=== PATIENT | female | born 1935 | race Caucasian/White ===

== ENCOUNTER 2017-10-22 11:59 | Inpatient (IN) | payer OTHER ==
[~2017-10-22] VITALS: Ht 154.9 cm; Wt 68.9 kg
[2017-10-22] VITALS (7 sets, daily range): BP systolic 103–149; BP diastolic 41–98
[~2017-10-22 11:59] MED LIST: ACETAMINOPHEN325 M1 PO; ADVAIR 250-501 EACH INH; ADVAIR HFA 45-218 GM INH; ALBUTEROL SULFAT2 MG PO; ALBUTEROL SULFAT4 MG PO; ALBUTEROL2.5 MG/31 IH; ALEVE220 MG PO; AZITHROMYCIN 2250 MG PO; BENADRYL25 MG PO; BROVANA15 MCG/2 M INH; CELEXA 20 MG TA20 M1 PO; CELEXA 20 MG TA20 MG PO; CELEXA40 MG PO; DALIRESP500 MCG PO; DIAZEPAM 5 MG5 MG PO; DIFLUCAN100 MG PO; DUONEB 2.5-0.5 M3 ML INH; ESTRACE2 MG PO; FORADIL 1212 MCG/KI1 INH; LEVAQUIN 500 M500 M2 PO; LEVOFLOXACIN750 MG PO; MACROBID 100 M100 M1 PO; MECLIZINE 25 MG25 M1 PO; POTASSIUM20; PREDNISONE; PREDNISONE 10 M10 M1; PREDNISONE 10 M10 M1 PO; PREDNISONE 10 M10 MG PO; PREDNISONE 5 MG5 M1 PO; PULMICORT0.5 MG/21 INH; SINGULAIR 10 MG10 M1 PO; STERAPRED5 MG OR; SYMBICORT160 MCG/4. INH; THEOPHYLLINE S300 M1 PO; THEOPHYLLINE S300 MG PO; VALIUM5 MG PO; ZOFRAN ODT4 MG PO; [UNRECOGNIZED DRUG - OTHER]; [UNRECOGNIZED DRUG - REMARK]
[2017-10-22 12:29] LABS: HEMATOCRIT 40.7 % (37.0-47.0); HEMOGLOBIN 13.1 gm/dL (12.0-15.0); MCHC 32.1 g/dL (28.0-37.0); MCV 93.7 fL (80.0-100.0); MPV 8.2 fl. (7.2-11.1); NUCLEATED RBCS 0 /100WBC; PLATELET COUNT* 299 thou/uL (150-400); RBC 4.35 mil/uL (4.20-5.00); RDW-CV 15.5 % (10.5-14.5); WBC 23.9 thou/uL (4.0-11.0)
[2017-10-22 12:41] LABS: ANION GAP 10 mmol/L (7-16); BUN 22 mg/dL (7-18); CALCIUM 9.2 mg/dL (8.5-10.1); CHLORIDE 104 mmol/L (98-107); CO2 27 mmol/L (21-32); GLUCOSE 116 mg/dL (70-99); POTASSIUM 3.5 mmol/L (3.5-5.1); SODIUM 141 mmol/L (136-145)
[2017-10-22 12:45] LABS: ALBUMIN 3.6 g/dL (3.4-5.0); ALKALINE PHOSPHATASE 92 U/L (46-116); LIPASE 54 U/L (73-393); MAGNESIUM 1.9 mg/dL (1.8-2.4); NT-PRO BRAIN NAT PEPTIDE 8495 pg/mL (<300); SGOT 26 U/L (15-37); SGPT 25 U/L (30-65); TOTAL BILIRUBIN 0.9 mg/dL (<0.1-1.0); TROPONIN-I LEVEL <0.06 ng/mL (<0.06)
[2017-10-22 12:50] LABS: ABSOLUTE MONOCYTES 2.2 thou/uL (0.0-1.2); ABSOLUTE NEUTROPHILS 20.8 thou/uL (1.6-8.1); ANISOCYTOSIS 1+; PLATELET ESTIMATE ADEQUATE; POIKILOCYTOSIS 1+
--- NOTE | 2017-10-22 14:04 | NUR ---
CRISTINA NOTIFIED UPON PT RETURN FROM CT. PT CONNECTED TO MONITOR AND O2
[2017-10-22 18:21] LABS: BE -0.2 mmol/L (-2 to +3); HCO3 25.2 mmol/L (22.0-26.0); PCO2 44.1 mmHg (35.0-45.0); PO2 91.9 mmHg (75.0-100.0); pH 7.375 (7.340-7.450)
--- NOTE | 2017-10-22 18:24 | NUR ---
PATIENT PROGRESSING TOWARDS GOALS. PATIENT ARRIVED TO UNIT AT 1625 BY ER CART WITH LINE TESTER AND RT. PATIENT AWAKE, BUT LETHARGIC UPON ARRIVAL. ORIENTED X4. ADMISSION HISTORY AND ASSESSMENT COMPLETED. PATIENT DOES STATE SHE DOES NOT WANT TO BE INTUBATED IF SHE STARTS TO REQUIRE IT. DR SANDHU ENTERED DO NOT INTUBATE ORDERS. PATIENT ARRIVED ON BIPAP AT 14/6, 14, 40%. AT 1815 ABGS DRAWN WITH NO ABNORMAL VALUES. CALLED RESULTS TO DR DAVENPORT, STATED NO CHANGES TO BIPAP SETTINGS, BUT IF PATIENT WANTS BIPAP OFF TO PLACE HER ON VENTI MASK AT 40% FIO2. PATIENT UPON ARRIVING TACHYPNEIC AND TACHYCARDIC WITH LOTS OF ECTOPY NOTED. PATIENT RESPIRATIONS NOW IN LOW 20S, TRACING SR WITH PVCS. BLOOD PRESSURE STABLE. AFEBRILE. FAMILY PRESENT, INCLUDING DAUGHTER. UPDATED ON CURRENT PLAN OF CARE AND DENIES FURTHER QUESTIONS AT THIS TIME.
[2017-10-23] VITALS (13 sets, daily range): BP systolic 108–172; BP diastolic 48–93
--- NOTE | 2017-10-23 01:01 | NUR ---
PT. REFUSING BIPAP AT THIS TIME, DR. MORROW NOTIFIED DAY SHIFT RN THAT IF PT. IS NOT TOLERATING BIPAP TO USE VENTIMASK 40%. VENTIMASK APPLIED AT THIS TIME.
[2017-10-23 04:30] LABS: ABSOLUTE BASOPHILS 0.1 thou/uL (0.0-0.2); ABSOLUTE MONOCYTES 0.4 thou/uL (0.0-1.2); BASOPHILS 0.3 %; HEMATOCRIT 36.9 % (37.0-47.0); HEMOGLOBIN 11.7 gm/dL (12.0-15.0); LYMPHOCYTES 4.5 %; MCH 29.8 pg (26.0-34.0); MCHC 31.8 g/dL (28.0-37.0); MCV 93.6 fL (80.0-100.0); MONOCYTES 1.9 %; MPV 8.7 fl. (7.2-11.1); NUCLEATED RBCS 0 /100WBC; PLATELET COUNT* 283 thou/uL (150-400); POLYS 93.3 %; RBC 3.94 mil/uL (4.20-5.00); RDW-CV 15.8 % (10.5-14.5); WBC 21.4 thou/uL (4.0-11.0)
[2017-10-23 04:50] LABS: ANION GAP 7 mmol/L (7-16); BUN 21 mg/dL (7-18); CALCIUM 8.5 mg/dL (8.5-10.1); CHLORIDE 106 mmol/L (98-107); CO2 27 mmol/L (21-32); CREATININE 0.9 mg/dL (0.6-1.3); GLUCOSE 166 mg/dL (70-99); NT-PRO BRAIN NAT PEPTIDE 9120 pg/mL (<300); SODIUM 140 mmol/L (136-145); TROPONIN-I LEVEL <0.06 ng/mL (<0.06)
--- NOTE | 2017-10-23 05:03 | NUR ---
PT. PROGRESSING TOWARDS GOALS. BIPAP OFF AT 0100, 40% VENTIMASK ON AT THIS TIME. DENIES PAIN. SINUS RHYTHM WITH FREQUENT PVC'S AND PAC'S. WILL CONTINUE TO MONITOR.
--- NOTE | 2017-10-23 13:28 | 2DMMODE ---
[place] [address] 2 D/M-MODE ECHOCARDIOGRAM Name: BRUNO GASCA Room: [address] IN [facility]#: [id number] Admission: 10/22/17 Attend Phys: Nj Benjamin, Discharge: Date of : 35 Date of Service: 10/23/17 1328 Report #: [id number] THIS REPORT FOR: //name// APPROVED REPORT Study performed: 10/23/2017 11:31:32 EXAM: Comprehensive 2D, Doppler, and color-flow Echocardiogram Patient Location: In-Patient Room #: [facility] Status: routine BSA: 1.74 HR: 102 bpm BP: 124/643 mmHg Rhythm: NSR Other Information Study Quality: Good Indications COPD Dyspnea 2D Dimensions LVEF(%): 63.38 (>50%) IVSd: 11.78 (7-11mm) LVOT Diam: 19.63 (18-24mm) LVDd: 56.79 mm PWd: 11.66 (7-11mm) Ascending Ao: 34.99 (22-36mm) LVDs: 37.00 (25-40mm) Aortic Root: 28.23 mm Mendez's LVEF: 63.38 % Volumes Left Atrial Volume (Systole) LA ESV Index: 29.00 mL/m2 Aortic Valve AoV Peak Justin.: 1.55 m/s AO Peak Gr.: 9.64 mmHg LVOT Max P.93 mmHg AO Mean Gr.: 5.92 mmHg LVOT Mean P.00 mmHg LVOT Max V: 1.22 m/s AO V2 VTI: 30.44 cm LVOT Mean V: 0.80 m/s BRITTANY (VTI): 2.44 cm2 LVOT V1 VTI: 24.50 [place] [address] 2 D/M-MODE ECHOCARDIOGRAM Name: BRUNO GASCA Room: [address] IN [facility]#: [id number] Admission: 10/22/17 Attend Phys: Nj Benjamin, Discharge: Date of : 35 Date of Service: 10/23/17 1328 Report #: [id number] E/A Ratio: 0.70 MV Decel. Time: 273.50 ms MV E Max Justin.: 0.73 m/s MV PHT: 79.31 ms MVA (PHT): 2.77 cm2 TDI E/Lateral E': 6.64 E/Medial E': 7.30 Medial E' Justin.: 0.10 m/s Lateral E' Justin.: 0.11 m/s Pulmonary Valve PV Peak Justin.: 0.99 m/s PV Peak Gr.: 3.92 mmHg Left Ventricle The left ventricle is normal size. There is normal LV segmental wall motion. There is normal left ventricular wall thickness. The left ventricular systolic function is normal. LVEF is 55-60%. Grade I - abnormal relaxation pattern. Right Ventricle The right ventricle is normal size. The right ventricular systolic function is normal. Atria Left atrium is mildly dilated. The right atrium size is normal. Aortic Valve The aortic valve is normal in structure. No aortic regurgitation is present. There is no aortic valvular stenosis. Mitral Valve The mitral valve is normal in structure. Moderate mitral regurgitation. No evidence of mitral valve stenosis. Tricuspid Valve The tricuspid valve is normal in structure. Unable to assess PA pressure. Trace tricuspid regurgitation. Pulmonic Valve The pulmonary valve is normal in structure. There is no pulmonic valvular regurgitation. Great Vessels The aortic root is normal in size. IVC is [place] [address] 2 D/M-MODE ECHOCARDIOGRAM Name: BRUNO GASCA Room: [address] IN [facility]#: [id number] Admission: 10/22/17 Attend Phys: Nj Benjamin, Discharge: Date of : 35 Date of Service: 10/23/17 1328 Report #: [id number] collapses with >50% inspiration Pericardium There is no pericardial effusion. <Conclusion> The left ventricle is normal size. There is normal left ventricular wall thickness. The left ventricular systolic function is normal. LVEF is 55-60%. Grade I - abnormal relaxation pattern. Left atrium is mildly dilated. Moderate mitral regurgitation. There were frequent premature ventricular contractions during the study. <ELECTRONICALLY SIGNED> By: Gasper Lala MD, FACC 10/23/17 1328 1328 1328 Gasper Lala MD, FACC /INF
--- NOTE | 2017-10-23 13:44 | EKG ---
[place] [address] ELECTROCARDIOGRAM REPORT Name: BRUNO GASCA Room: [address] IN [facility]#: [id number] Admission: 10/22/17 Attend Phys: Nj Benjamin MD Discharge: Date of : 35 Report #: [id number] THIS REPORT FOR: //name// [facility] ED Test Date: 2017-10-22 Test Time: 12:10:18 Pat Name: BRUNO GASCA Department: Room: Gender: Replenishment Associate: Deepali MCCANN : 1935 Requested By: Jose C Santos Order Number: [id number] MD: Musa Allred Measurements Intervals [place] Rate: 119 P: 94 FL: 134 QRS: -43 QRSD: 110 T: 59 QT: 338 QTc: 476 Interpretive Statements Sinus tachycardia ventricular premature complexes and pac Consider right atrial enlargement Left anterior fascicular block Low voltage, precordial leads Consider anterior infarct Compared to ECG 11/30/2013 11:56:17 Sinus rhythm no longer present Electronically Signed On 10-23-2017 13:43:54 CDT by Musa Allred [email or web address] <ELECTRONICALLY SIGNED> By: Musa Allred MD, [facility] 10/23/17 1343 1210 1210 Musa Allred MD, [facility] /EPI
--- NOTE | 2017-10-23 15:19 | NUR ---
PATIENT OFF BIPAP AT 0800 AND PLACED ON HIGH FLOW NASAL CANNULA. DENIES PAIN. ABLE TO TAKE PO PILLS WELL WITH WATER. PATIENT REPORTED SHE DOESN'T SWALLOW WELL, PULMONARY PLACED ST CONSULT. PATIENT DENIES PAIN. BREATHING DOES APPEAR SLIGHTLY LABORED, BUT IMPROVED FROM PREVIOUS. O2 SAT 93-100% ON HF NC AT 5L. PATIENT FAMILY PRESENT THIS AM. DOWNGRADED TO TELEMETRY STATUS. CABRERA DISCONTINUED. REPORT GIVEN TO JOSE HARDY.
--- NOTE | 2017-10-23 17:01 | NUR ---
RECEIVED PT FROM ICU AROUND 1545. PT A&O X4. VSS. O2 SAT 93% ON 5L PER HF CANNULA. LOSS CONTROL MANAGER PLACED TRACING SR WITH PAC'S AND PVC'S. IV'S TO RIGHT AC AND LEFT AC INTACT AND SALINE LOCKED. PT DENIES PAIN OR DISCOMFORT AT THIS TIME. ALL NEEDS MET AT THIS TIME. PT ORIENTED TO ROOM, BED AND CALL LIGHT. PT COMMUNICATES UNDERSTANDING. PT CURRENTLY RESTING IN BED. CALL LIGHT IS WITHIN REACH. HOURLY ROUNDING PERFORMED. FALL PRECAUTIONS ARE IN PLACE. THIS RN AGREES WITH CHARTING COMPLETED BY FRANKLIN GARCIA FROM ICU. PT HANDED OFF TO ANTONY GARCIA AT 1700.
--- NOTE | 2017-10-23 18:52 | NUR ---
vss, assumed care of pt from nurse, will follow with plan of care.
--- NOTE | 2017-10-23 20:00 | NUR ---
RECEIVED REPORT AND ASSUMED CARE OF PT, ASSESSMENT COMPLETED. PT SOB AND DYSPNIC, O2 ON AT 5L/HFC, HOB ELEVATED. TELEMETRY ON SHOWING SR WITH PVC. WILL CONT TO MONITOR AND ASSIST NEEDED.
[2017-10-24 04:00] VITALS: BP 154/59
[2017-10-24 05:13] LABS: ABSOLUTE BASOPHILS 0.1 thou/uL (0.0-0.2); ABSOLUTE LYMPHOCYTES 1.1 thou/uL (0.8-5.3); ABSOLUTE MONOCYTES 0.6 thou/uL (0.0-1.2); ABSOLUTE NEUTROPHILS 22.6 thou/uL (1.6-8.1); BASOPHILS 0.2 %; LYMPHOCYTES 4.4 %; MCH 29.4 pg (26.0-34.0); MCHC 31.5 g/dL (28.0-37.0); MCV 93.2 fL (80.0-100.0); MONOCYTES 2.3 %; MPV 8.7 fl. (7.2-11.1); NUCLEATED RBCS 0 /100WBC; PLATELET COUNT* 317 thou/uL (150-400); POLYS 93.1 %; RBC 4.08 mil/uL (4.20-5.00); RDW-CV 15.4 % (10.5-14.5); WBC 24.3 thou/uL (4.0-11.0)
[2017-10-24 05:37] LABS: ALBUMIN 2.6 g/dL (3.4-5.0); CALCIUM 8.8 mg/dL (8.5-10.1); POTASSIUM 4.2 mmol/L (3.5-5.1); TOTAL BILIRUBIN 0.3 mg/dL (<0.1-1.0); TOTAL PROTEIN 5.9 g/dL (6.4-8.2)
--- NOTE | 2017-10-24 07:12 | NUR ---
SLEPT WELL DURING NIGHT. CONT TO BE SOB WITH ANY ACTIVITY. O2 ON AT 5L/HFC. UP TO BSC, VOIDING WITHOUT DIFFICULTY. TELEMETRY CONT TO SHOW SR WITH FREQ PVC AND PAC. HS GOALS OF REST AND SAFETY OBTAINED. HOURLY ROUNDING OBSERVED.
[2017-10-24 08:00] VITALS: BP 144/71
[2017-10-24 11:35] VITALS: BP 135/59
--- NOTE | 2017-10-24 12:08 | NUR ---
VSS, ASSUMED CARE IN THE AM, ASSESSMENT PERFORMED AND CHARTED, FALL PRECAUTIONS IN PLACE AND CALL LIGHT IN REACH, PT DENIES ANY PAIN AND IS TRACING ST/SR WITH PAC AND PVC ON THE MONITOR. PT IS UP WITH ONE AND O2 AND WALKER, PT GOAL IS TO IMPROVE BREATHING AND SIT UP IN CHAIR, WILL FOLLOW WITH PLAN OF CARE.
[2017-10-24 15:45] VITALS: BP 132/81
[2017-10-24 20:10] VITALS: BP 161/63
[2017-10-25] VITALS (7 sets, daily range): BP systolic 109–149; BP diastolic 50–79
--- NOTE | 2017-10-25 05:01 | NUR ---
A&O X4 CALM CO[address]ITVE. [address] PVC PAC ON THE MONITOR. 5L HIGH FLOW AND BIPAP AT HS. X1 ASSIST TO COMODE AND CHAIR. IVF. VITALS WNL. SEE MAR. SEE CHARTING. FALL PRECAUTIONS IN PLACE. HOURLY ROUNDING FOR SAFETY.
[2017-10-25 05:22] LABS: HEMATOCRIT 38.9 % (37.0-47.0); HEMOGLOBIN 12.3 gm/dL (12.0-15.0); MCH 29.5 pg (26.0-34.0); MCHC 31.6 g/dL (28.0-37.0); MCV 93.6 fL (80.0-100.0); MPV 8.5 fl. (7.2-11.1); NUCLEATED RBCS 0 /100WBC; PLATELET COUNT* 293 thou/uL (150-400); RBC 4.15 mil/uL (4.20-5.00); RDW-CV 15.9 % (10.5-14.5); WBC 18.2 thou/uL (4.0-11.0)
--- NOTE | 2017-10-25 05:31 | NUR ---
Pt taken off bipap and placed on 5L NC
[2017-10-25 05:50] LABS: ALBUMIN 2.8 g/dL (3.4-5.0); CALCIUM 8.8 mg/dL (8.5-10.1); TOTAL BILIRUBIN 0.4 mg/dL (<0.1-1.0); TOTAL PROTEIN 6.1 g/dL (6.4-8.2)
[2017-10-25 05:52] LABS: PREALBUMIN 15.4 mg/dL (18.0-35.7)
[2017-10-25 06:39] LABS: ABSOLUTE LYMPHOCYTES 0.7 thou/uL (0.8-5.3); ABSOLUTE NEUTROPHILS 17.5 thou/uL (1.6-8.1); ATYPICAL LYMPHS 1 %
[2017-10-25 06:40] LABS: PLATELET ESTIMATE ADEQUATE
--- NOTE | 2017-10-25 17:37 | NUR ---
VSS, KS IS PROGRESSING TOWARDS GOAL, PT HAS BEEN UPO IN CHAIR AND TO BSC, PT DENIES ANY PAIN AT THIS TIME, SHE IS ON 5L NC HIGH FLOW AND IS TRACING ST C PAC ON THE MONITOR AND PVC, PT IS UP WITH ONE WALKER AND BELT, PT HAS FAMILY AT BEDSIDE, PT IS A&O4 AND HER GOAL IS TO SLEEP WITH BIPAP AT HS, HOURLY ROUNDS COMPLETED,
[2017-10-26 03:59] VITALS: BP 100/54
[2017-10-26 04:49] LABS: ABSOLUTE MONOCYTES 0.5 thou/uL (0.0-1.2); ABSOLUTE NEUTROPHILS 13.8 thou/uL (1.6-8.1); BASOPHILS 0.3 %; HEMATOCRIT 38.4 % (37.0-47.0); HEMOGLOBIN 12.1 gm/dL (12.0-15.0); LYMPHOCYTES 6.3 %; MCH 29.6 pg (26.0-34.0); MCHC 31.6 g/dL (28.0-37.0); MCV 93.6 fL (80.0-100.0); MONOCYTES 3.2 %; MPV 8.2 fl. (7.2-11.1); NUCLEATED RBCS 0 /100WBC; PLATELET COUNT* 285 thou/uL (150-400); POLYS 90.2 %; RDW-CV 15.3 % (10.5-14.5); WBC 15.2 thou/uL (4.0-11.0)
[2017-10-26 05:12] LABS: ALBUMIN 2.5 g/dL (3.4-5.0); CALCIUM 8.7 mg/dL (8.5-10.1); POTASSIUM 4.6 mmol/L (3.5-5.1); TOTAL BILIRUBIN 0.3 mg/dL (<0.1-1.0); TOTAL PROTEIN 5.6 g/dL (6.4-8.2)
[2017-10-26 05:35] LABS: PREALBUMIN 17.2 mg/dL (18.0-35.7)
--- NOTE | 2017-10-26 05:45 | NUR ---
A&0 X4 CALM COOPERITVE. 5L HIGH FLOW. STAND BY ASSIST. IVF. SR PVC PAC ON THE MONITOR. VITALS WNL. SEE MAR. SEE CHARTING. FALL PRECAUTIONS IN PLACE. HOURLY ROUNDING FOR SAFETY.
[2017-10-26 08:00] VITALS: BP 140/80
--- NOTE | 2017-10-26 09:00 | NUR ---
ASSUMED PT. CARE AND RECEIVED REPORT AT 0730. PT A/OX4, VSS, MONITOR ON TRACING ST PVC/PAC. PT. ON 5LNC @ 95%. PT. STATES SHE IS HAVING SMALL AMOUNT OF PHLEGM, CLEAR IN COLOR. CONTINUES TO HAVE LOOSE STOOLS. FULL ASSESSMENT COMPLETED, REFER TO CHARTING. DR. SANDHU INTO SEE, ENCOURAGING PT. TO DO REHAB AT SNF, PT. DECLINING. ANTICIPATE DC IN 1-2 MORE DAYS. CALL LIGHT IN REACH, WILL CONTINUE WITH PLAN OF CARE.
--- NOTE | 2017-10-26 10:28 | EKG ---
[place] [address] ELECTROCARDIOGRAM REPORT Name: BRUNO GASCA Room: [address] ADM IN [facility]#: [id number] Admission: 10/22/17 Attend Phys: Nj Benjamin MD Discharge: Date of : 35 Report #: [id number] THIS REPORT FOR: //name// [facility] Test Date: 2017-10-25 Test Time: 00:00:17 Pat Name: BRUNO GASCA Department: Room: [address] Gender: F Account Manager Trainee: BLANQUITA : 1935 Requested By: Nj Benjamin Order Number: [id number] Reading MD: Musa Allred Measurements Intervals [place] Rate: 137 P: 0 MT: QRS: -29 QRSD: 93 T: 64 QT: 341 QTc: 515 Interpretive Statements Supraventricular tachycardia Borderline left axis deviation Low voltage, precordial leads Consider anterior infarct Prolonged QT interval Electronically Signed On 10-26-2017 10:28:24 CDT by Musa Allred [email or web address] <ELECTRONICALLY SIGNED> By: Musa Allred MD, [facility] 10/26/17 1028 0000 0000 Musa Allred MD, FAC /EPI
--- NOTE | 2017-10-26 10:52 | CON ---
[address] [address] CONSULTATION Name: BRUNO GASCA Room: [address] IN M.R.#: [id number] Admission: 10/22/17 Attend Phys: Nj Benjamin MD Discharge: Date of : 35 Report #: [id number] THIS REPORT FOR: //name// CC: Nj Colby REASON FOR CONSULTATION: Acute on chronic respiratory failure. HISTORY OF PRESENT ILLNESS: The patient is an 82-year-old female patient with history of chronic respiratory failure on 4 liter oxygen at baseline for the last 8 years, history of COPD. At one point, she was seen at our office. She remembers seeing Dr. Watt in the past. She presented to the hospital with 1-week history of increasing shortness of breath that had been getting worse. This was associated with cough that was congested with occasional sputum production, but not much per the patient and she was having progressive wheezes and shortness of breath. Apparently when she presented to the ER, she was in significant distress and she decided not to be intubated. She was using accessory muscles and she was on BiPAP overnight; however, early in the morning hour, she was changed to Ventimask and from then, she was changed to nasal cannula. Now, she can speak in full sentence, but clearly tachypneic toward the end of the sentence, still some increased work of breathing. She told me that she does not have any fever or chills. She has no chest pain. She denied any sick contact. She denied any travel. She denied any sore throat or nasal discharge or obstruction. She denied any lower extremity edema. She denied PNDs or orthopnea. PAST MEDICAL HISTORY: Chronic respiratory failure on home oxygen, COPD, history of pneumonia in the past. ALLERGIES: No known drug allergies. HOME MEDICATIONS: She is on DuoNeb, theophylline, Pulmicort, citalopram. PAST MEDICAL HISTORY: Includes COPD, chronic respiratory failure, arrhythmias, cataracts, urinary tract infection, arthritis and prolapsed bladder. PAST SURGICAL HISTORY: Includes tonsillectomy, appendectomy, hysterectomy. FAMILY HISTORY: Reviewed with the patient, noncontributory. SOCIAL HISTORY: She is an ex-smoker, smoked for many years, but quit long time ago. Does not drink alcohol. Does not abuse drugs. REVIEW OF SYSTEMS: Full system review of the patient negative as mentioned above. It is negative for fever, chills, blurring of vision, nasal congestion, rhinitis; however, she told me she had some [place] [address] CONSULTATION Name: BRUNO GASCA Room: [address] IN ..#: [id number] Admission: 10/22/17 Attend Phys: Nj Benjamin MD Discharge: Date of : 35 Report #: [id number] Sometimes, she gets choking. She denied any joint pain at this point or rash. The rest of the review system was negative. PHYSICAL EXAMINATION: VITAL SIGNS: When I saw her initially, she was on 40% Ventimask with saturation 98% with a blood pressure 117/62, breathing 20 times a minute, pulse rate 91, temperature 36.6. GENERAL: Elderly lady, awake, lying in bed, although she speaks in full sentence, but there is some increased work of breathing toward the end of the sentence. HEAD: Normocephalic, atraumatic. EYES: Pupils reactive to light. Not pale or jaundiced. EARS: External ear looks healthy and normal. ORAL CAVITY: Moist mucous membrane. Mallampati of 2-3. NECK: Supple. No palpable lymph nodes, no palpable thyroid. Trachea is central. CHEST: Diminished air movement bilaterally with coarse breathing sound mostly on the right side. Wheezes heard bilaterally expiratory phase equal. HEART: S1, S2, no murmur. ABDOMEN: Benign, soft, lax, nontender, positive bowel sounds. No masses felt. No rebound, no rigidity. EXTREMITIES: Lower extremity, trace edema, no calf tenderness. SKIN: Normal for age and race, no rash. PSYCHIATRIC: Mood and affect appropriate. Good insight and judgment. NEUROLOGIC: Moving 4 extremities spontaneously. No focal weakness. LYMPHATICS: No palpable lymph nodes. LABORATORY DATA: Her chest x-ray in the ER demonstrated cardiomegaly with infiltrate of the right lung field. CT of the chest did not show PE, but showed infiltrates bilaterally, mostly on the right side. Her white blood count was 23.9 with a hemoglobin 13.1, platelet 299. ABG 7.37/44/91 and this was done on the BiPAP. Her creatinine is 0.9 with a potassium of 4, sodium 140 and BNP of 9120. IMPRESSION: 1. Bvpqe-st-csumkij hypoxic respiratory failure at baseline, she is on 4 liter oxygen at home. 2. Chronic obstructive pulmonary disease exacerbation. 3. Pneumonia. 4. Dysphagia with history of choking with food. 5. Elevated BNP. 6. At this point, we will keep the BiPAP p.r.n. I would recommend for the patient sleep on the BiPAP during the night at this point until her respiratory failure resolves, we need to monitor fluid status and avoid fluid overload. Consider p.r.n. diuresis. [address] [address] CONSULTATION Name: BRUNO GASCA Room: [address] IN M.R.#: [id number] Admission: 10/22/17 Attend Phys: Nj Benjamin MD Discharge: Date of : 35 Report #: [id number] 7. Continue IV steroids, antibiotics. Due to history of dysphagia, I will consult speech pathology for further evaluation and recommendation. Discussed with the patient and RN. Thank you for the consult. We will follow along with you. <ELECTRONICALLY SIGNED> By: Day Sweeney MD 10/26/17 1052 0921 1916Day Sweeney MD /nt
[2017-10-26 11:30] VITALS: BP 138/64
--- NOTE | 2017-10-26 13:47 | NUR ---
Pt is A&O. Resides at home, her grandson lives with her. Pt stated that she is independent with ADLs, continues to cook and clean. Pt stated that she has never driven, grandson takes her to and from appts and to run errands. Pt wears continuous home o2, provided through [employer]. No hx of HH or SNF. Pt declining HH and SNF at dc, no needs anticipated. Pt states that tal told her that she can dc home tomorrow. Following.
[2017-10-26 16:00] VITALS: BP 143/75
--- NOTE | 2017-10-26 18:24 | NUR ---
PT. STABLE THROUGH OUT SHIFT. HAS MAINTAINED STABLE OXYGENATION ON 5L TODAY. PT. STATING SHE FEELS BETTER THIS EVENING AND READY TO GO HOME TOMORROW. UP TO CHAIR X1, AND UP TO BSC MULTIPLE TIMES. PT. REPORTS STOOLS HAVE DECREASED. HEADACHE RELIEVED WITH IBUPROFEN X1. HOURLY ROUNDING COMPLETED THROUGH OUT THE DAY FOR PT. SAFETY.
[2017-10-26 20:56] VITALS: BP 142/87
[2017-10-26 23:10] VITALS: BP 135/86
[2017-10-27 04:00] VITALS: BP 126/72
--- NOTE | 2017-10-27 07:30 | NUR ---
CHANGE OF SHIFT BEDSIDE REORT GIVEN PATIENT SEEN IN BED ASLEEP ASSUMED PATIENT CARE
[2017-10-27 08:00] VITALS: BP 151/73
--- NOTE | 2017-10-27 08:21 | NUR ---
PT IS ABLE TO COMMUNICATE HER NEEDS TO STAFF EFFECTIVELY. SHE HAS DENIED THE NEED FOR PAIN MEDICATION UP TO THIS TIME. PT IS A FULL CODE, BUT REQUESTS NO INTUBATION. POSSIBLE DISCHARGE TODAY.
[2017-10-27 11:30] VITALS: BP 139/69
[2017-10-27 16:00] VITALS: BP 122/74
--- NOTE | 2017-10-27 18:24 | NUR ---
PATIENT REMAINS A AND O X 4 SR/ST/PACS COARSE/DIM 4 LNC O2 SATS MID 90S AMALGAMATOR COUGH APPETITE FAIR LAST BM T-1 GOOD UO UP WITH 1 1ASSIST BSC BLE EDEMA 1-2+ NO C/O PAIN IV INFILTRATE R FA MILD EDEMA/RED WARM/MOIST PACK APPLIED OK TO LEAVE IV OUT CALL LIGHT IN REACH AND FOLLOWS INSTRUCTION GIVEN
[2017-10-27 19:45] VITALS: BP 139/80
[2017-10-28] VITALS: BP 139/81
[2017-10-28 04:00] VITALS: BP 123/75
[2017-10-28 04:39] LABS: HEMATOCRIT 42.9 % (37.0-47.0); HEMOGLOBIN 13.4 gm/dL (12.0-15.0); MCH 29.3 pg (26.0-34.0); MCHC 31.3 g/dL (28.0-37.0); MCV 93.6 fL (80.0-100.0); MPV 8.3 fl. (7.2-11.1); NUCLEATED RBCS 0 /100WBC; PLATELET COUNT* 336 thou/uL (150-400); RBC 4.58 mil/uL (4.20-5.00); RDW-CV 15.4 % (10.5-14.5); WBC 18.5 thou/uL (4.0-11.0)
[2017-10-28 05:06] LABS: ALBUMIN 2.7 g/dL (3.4-5.0); CALCIUM 8.5 mg/dL (8.5-10.1); POTASSIUM 4.9 mmol/L (3.5-5.1); TOTAL BILIRUBIN 0.3 mg/dL (<0.1-1.0); TOTAL PROTEIN 5.6 g/dL (6.4-8.2)
--- NOTE | 2017-10-28 05:35 | NUR ---
RECEIVED REPORT AND ASSUMED CARE AT 1900. VSS CARDIAC MONITORING IN PLACE. PT DENIES ANY COMPLAINTS OF PAIN. PT UP WITH ASSIST TO BSC, ON 4LNC WHICH THE PT WEARS AT HOME. ASSESSMENT COMPLETED CHARTED. MEDICATIONS ADMIN PER ORDERS. PT IV ANTIBIOTICE NOT GIVEN. PER PHYCICIAN IV WAS TO REMAIN OUT, PO MEDICATION TO BE STARTED IN THE MORNING, 10/28/17. PT FEELS READY TO BE DISCHAGED. HOURLY ROUNDING COMPLETED, ALL NEEDS MET. WILL CONTINUE TO MONITOR FOR REMAINDER OF THE SHIFT.
[2017-10-28 05:58] LABS: ABSOLUTE LYMPHOCYTES 2.4 thou/uL (0.8-5.3); ABSOLUTE NEUTROPHILS 16.1 thou/uL (1.6-8.1); PLATELET ESTIMATE ADEQUATE
[2017-10-28 05:59] LABS: ANISOCYTOSIS 1+; POIKILOCYTOSIS 1+; POLYCHROMASIA 1+
--- NOTE | 2017-10-28 07:30 | NUR ---
CHANGE OF SHIFT BEDSDIE REPORT GIVEN PATIENT SEEN AT BEDSIDE, IN BED ASLEEP ASSUMED PATIENT CARE
[2017-10-28 08:00] VITALS: BP 141/80
--- NOTE | 2017-10-28 10:01 | NUR ---
Pt discharging to home today, continues to decline HH services. Updated nurse. No needs.
[2017-10-28] MEDS ORDERED: PREDNISONE 10 M10 MG PO (11:31)
[2017-10-28 12:00] VITALS: BP 148/82
[2017-10-28] MEDS ORDERED: PROTONIX40 M1 PO (12:01)
[2017-10-28] MEDS ORDERED: CEFPODOXIME PR200 M1 PO (12:05)
[2017-10-28 12:06] VITALS: BP 141/80
--- NOTE | 2017-10-28 12:30 | NUR ---
PATIENT DCD TO HOME ALL DC INSTRUCTIONS GIVEN, ACKNOWLEDGED, AND SIGNED COPIES GIVEN HEART MONITOR REMOVED AND PERSONAL BELONGINGS RETURNED ASSISTED OUT VIA WC GOOD CONDITION TO WAITING CAR
== END 2017-10-28 12:30 | disposition home or self-care (01) | DRG 177 ==
LOC: M.ERS 11:59 → M.ICU 13:40 → M.TBA-ER 13:40 → M.ICU 16:39 → M.2W 10-23 15:55
PROVIDERS: Emergency Medicine Emergency Medical Services; ADMIT Internal Medicine
PROC: 5A09357 Assistance with Respiratory Ventilation, Less than 24 Consecutive Hours, Continuous Positive Airway Pressure (ICD-10-PCS; principal; 2017-10-22)
PROC: 5A09357 Assistance with Respiratory Ventilation, Less than 24 Consecutive Hours, Continuous Positive Airway Pressure (ICD-10-PCS; 2017-10-23)
PROC: 5A09357 Assistance with Respiratory Ventilation, Less than 24 Consecutive Hours, Continuous Positive Airway Pressure (ICD-10-PCS; 2017-10-24)
PROC: 5A09357 Assistance with Respiratory Ventilation, Less than 24 Consecutive Hours, Continuous Positive Airway Pressure (ICD-10-PCS; 2017-10-26)
DX: J69.0 Pneumonitis due to inhalation of food and vomit (principal); R65.11 Systemic inflammatory response syndrome (SIRS) of non-infectious origin with acute organ dysfunction; J96.20 Acute and chronic respiratory failure, unspecified whether with hypoxia or hypercapnia; J44.0 Chronic obstructive pulmonary disease with (acute) lower respiratory infection; J44.1 Chronic obstructive pulmonary disease with (acute) exacerbation; M19.90 Unspecified osteoarthritis, unspecified site; R13.10 Dysphagia, unspecified; Z90.49 Acquired absence of other specified parts of digestive tract; Z90.710 Acquired absence of both cervix and uterus; Z79.899 Other long term (current) drug therapy; Z87.891 Personal history of nicotine dependence

== ENCOUNTER 2018-09-21 15:22 | Emergency (ER) | payer OTHER ==
[~2018-09-21] VITALS: Ht 154.9 cm; Wt 64.0 kg
[~2018-09-21 15:22] MED LIST changes: +CEFPODOXIME PR200 M1 PO; +PROTONIX40 M1 PO
[2018-09-21] MEDS ORDERED: ASPIR 8181 MG PO (15:41)
[2018-09-21 15:50] LABS: ABSOLUTE BASOPHILS 0.3 thou/uL (0.0-0.2); ABSOLUTE EOSINOPHILS 0.6 thou/uL (0.0-0.7); ABSOLUTE LYMPHOCYTES 1.4 thou/uL (0.8-5.3); ABSOLUTE MONOCYTES 0.5 thou/uL (0.0-1.2); ABSOLUTE NEUTROPHILS 8.1 thou/uL (1.6-8.1); BASOPHILS 2.6 %; EOSINOPHILS 5.4 %; HEMATOCRIT 45.5 % (37.0-47.0); HEMOGLOBIN 14.8 gm/dL (12.0-15.0); LYMPHOCYTES 12.6 %; MCH 29.7 pg (26.0-34.0); MCHC 32.6 g/dL (28.0-37.0); MCV 91.2 fL (80.0-100.0); MPV 7.9 fl. (7.2-11.1); NUCLEATED RBCS 0 /100WBC; PLATELET COUNT* 257 thou/uL (150-400); POLYS 74.4 %; RBC 4.99 mil/uL (4.20-5.00); RDW-CV 15.9 % (10.5-14.5); WBC 10.9 thou/uL (4.0-11.0)
[2018-09-21 15:59] LABS: ANION GAP 5 mmol/L (7-16); BUN 20 mg/dL (7-18); CALCIUM 10.2 mg/dL (8.5-10.1); CHLORIDE 105 mmol/L (98-107); CO2 32 mmol/L (21-32); CREATININE 1.2 mg/dL (0.6-1.3); GLUCOSE 102 mg/dL (70-99); POTASSIUM 4.8 mmol/L (3.5-5.1); SODIUM 142 mmol/L (136-145)
[2018-09-21 16:02] LABS: APTT 26.1 Seconds (25.0-31.3); INR 1.2; PROTIME 11.8 Seconds (9.20-11.50)
[2018-09-21 16:09] LABS: ALBUMIN 3.5 g/dL (3.4-5.0); ALKALINE PHOSPHATASE 138 U/L (46-116); LIPASE 93 U/L (73-393); NT-PRO BRAIN NAT PEPTIDE 7289 pg/mL (<300); SGOT 34 U/L (15-37); SGPT 24 U/L (30-65); TOTAL BILIRUBIN 0.4 mg/dL (<0.1-1.0); TOTAL PROTEIN 6.8 g/dL (6.4-8.2); TROPONIN-I LEVEL <0.06 ng/mL (<0.06)
[2018-09-21 16:18] LABS: BE 0.9 mmol/L (-2 to +3); PCO2 44.1 mmHg (35.0-45.0); PO2 74.1 mmHg (75.0-100.0); pH 7.391 (7.340-7.450)
[2018-09-21] MEDS ORDERED: PREDNISONE 10 M10 MG PO (16:57)
[2018-09-21 18:18] LABS: URINE BILIRUBIN NEGATIVE (Negative); URINE BLOOD NEGATIVE (Negative); URINE CLARITY CLEAR; URINE COLOR YELLOW; URINE GLUCOSE-RANDOM NEGATIVE (Negative); URINE KETONES NEGATIVE (Negative); URINE LEUKOCYTES-REFLEX NEGATIVE (Negative); URINE NITRITE-REFLEX NEGATIVE (Negative); URINE PROTEIN NEGATIVE (Negative); URINE UROBILINOGEN 0.2 E.U./dl (0.2-1.0)
[2018-09-21] MEDS ORDERED: AZITHROMYCIN500 MG PO (18:20)
[2018-09-21 18:26] VITALS: BP 140/86
--- NOTE | 2018-09-22 13:17 | EKG ---
[place] [address] ELECTROCARDIOGRAM REPORT Name: BRUNO GASCA [facility] [id number] Admission: 09/21/18 Attend Phys: Discharge: 09/21/18 Date of : 35 Report #: [id number] THIS REPORT FOR: //name// [facility] ED Test Date: 2018-09-21 Test Time: 15:33:17 Pat Name: BRUNO GASCA Department: Room: Gender: F Air Intercept Controller: VAN : 1935 Requested By: Sweta Gong Order Number: [id number] MD: Matthias Julio Measurements Intervals [place] Rate: 98 P: 69 AK: 178 QRS: -61 QRSD: 103 T: 112 QT: 359 QTc: 459 Interpretive Statements Sinus rhythm with rare pvc Probable left atrial enlargement LVH with secondary repolarization abnormality Inferior infarct, old possible Compared to ECG 10/25/2017 00:00:17 Left ventricular hypertrophy now present Early repolarization now present Supraventricular tachycardia no longer present Prolonged QT interval no longer present Electronically Signed On 09-22-2018 13:17:34 CDT by Matthias Julio [email or web address] <ELECTRONICALLY SIGNED> By: Matthias Julio MD, [facility] 09/22/18 1317 1533 1533 Matthias Julio MD, [facility] /EPI
== END 2018-09-21 18:27 | disposition home or self-care (01) ==
LOC: M.ERS 15:22
PROVIDERS: Nurse Practitioner Family
DX: J44.1 Chronic obstructive pulmonary disease with (acute) exacerbation (principal); M19.90 Unspecified osteoarthritis, unspecified site; Z90.49 Acquired absence of other specified parts of digestive tract; Z90.710 Acquired absence of both cervix and uterus; Z87.01 Personal history of pneumonia (recurrent); Z87.891 Personal history of nicotine dependence; Z91.041 Radiographic dye allergy status

== ENCOUNTER 2019-05-27 22:57 | Inpatient (IN) | payer MEDICARE ==
[~2019-05-27] VITALS: Ht 152.4 cm; Wt 64.4 kg
[~2019-05-27 22:57] MED LIST changes: +ASPIR 8181 MG PO; +AZITHROMYCIN500 MG PO
[2019-05-27 23:00] VITALS: BP 128/106
[2019-05-27 23:31] LABS: ABSOLUTE LYMPHOCYTES 0.9 thou/uL (0.8-5.3); ABSOLUTE MONOCYTES 0.5 thou/uL (0.0-1.2); ABSOLUTE NEUTROPHILS 6.8 thou/uL (1.6-8.1); BASOPHILS 0.5 %; HEMATOCRIT 42.5 % (37.0-47.0); LYMPHOCYTES 10.5 %; MCH 30.1 pg (26.0-34.0); MCHC 32.9 g/dL (28.0-37.0); MCV 91.3 fL (80.0-100.0); MONOCYTES 6.3 %; NUCLEATED RBCS 0 /100WBC; PLATELET COUNT* 193 thou/uL (150-400); POLYS 82.7 %; RBC 4.66 mil/uL (4.20-5.00); RDW-CV 15.3 % (10.5-14.5); WBC 8.2 thou/uL (4.0-11.0)
[2019-05-27 23:44] LABS: CALCIUM 9.5 mg/dL (8.5-10.1); CREATININE 1.4 mg/dL (0.6-1.3)
[2019-05-27 23:47] LABS: INR 1.2; PROTIME 12.3 Seconds (9.20-11.50)
[2019-05-27 23:55] LABS: ALBUMIN 3.8 g/dL (3.4-5.0); TOTAL BILIRUBIN 0.4 mg/dL (<0.1-1.0); TOTAL PROTEIN 6.9 g/dL (6.4-8.2)
[2019-05-28 00:12] LABS: BE -0.9 mmol/L (-2 to +3); PCO2 36.3 mmHg (35.0-45.0); PO2 74.8 mmHg (75.0-100.0); pH 7.421 (7.340-7.450)
[2019-05-28 00:30] LABS: URINE BILIRUBIN NEGATIVE (Negative); URINE BLOOD TRACE (Negative); URINE CLARITY CLEAR; URINE COLOR YELLOW; URINE GLUCOSE-RANDOM NEGATIVE (Negative); URINE KETONES NEGATIVE (Negative); URINE LEUKOCYTES-REFLEX NEGATIVE (Negative); URINE NITRITE-REFLEX NEGATIVE (Negative); URINE PROTEIN 1+ (Negative); URINE SPECIFIC GRAVITY 1.025 (1.005-1.030); URINE UROBILINOGEN 0.2 E.U./dl (0.2-1.0)
[2019-05-28 05:25] VITALS: BP 123/83
[2019-05-28 06:00] VITALS: BP 115/60
[2019-05-28 08:30] VITALS: BP 126/65
[2019-05-28 11:00] LABS: CALCIUM 8.6 mg/dL (8.5-10.1); CREATININE 1.4 mg/dL (0.6-1.3); MAGNESIUM 1.8 mg/dL (1.8-2.4); POTASSIUM 3.5 mmol/L (3.5-5.1)
--- NOTE | 2019-05-28 11:52 | CON ---
[facility] [address] [place] [address] CONSULTATION Name: BRUNO GASCA Room: [address] IN ..#: [id number] Admission: 05/28/19 Attend Phys: Berenice Francisco Discharge: Date of : 35 Report #: [id number] THIS REPORT FOR: //name// CC: Kamran Murray DATE OF SERVICE: 05/28/2019 INDICATION: Atrial arrhythmias. HISTORY OF PRESENT ILLNESS: The patient is an 84-year-old white female who was admitted to the hospital with COPD exacerbation. In this setting, she was noted to have a rapid irregular heart rate. Review of the data suggests multifocal atrial tachycardia and not atrial fibrillation. She was given a single bolus of diltiazem and placed on BiPAP. With these maneuvers, her heart rhythm has returned to normal. She is not having any chest pain. She has no history of coronary artery disease. She states that she is breathing better on BiPAP. She is without cardiac complaint. PAST MEDICAL HISTORY: 1. COPD. 2. History of pneumonia. 3. Arthritis. 4. Bladder prolapse. PAST SURGICAL HISTORY: 1. Tonsillectomy. 2. Appendectomy. 3. Hysterectomy. 4. Hernia repair. 5. Right cataract repair. HOME MEDICATIONS: Prednisone, theophylline, Pulmicort, and aspirin. ALLERGIES: CONTRAST. FAMILY HISTORY: Noncontributory. SOCIAL HISTORY: The patient quit smoking remotely. She does not drink alcohol. PHYSICAL EXAMINATION: VITAL SIGNS: Stable. Blood pressure 126/65, pulse 84 and regular. GENERAL: This is a pleasant elderly female, in no distress. Mood and affect appropriate. HEENT: Head is normocephalic, atraumatic. Extraocular muscles [place] [address] CONSULTATION Name: BRUNO GASCA Room: [address]#: [id number] Admission: 05/28/19 Attend Phys: Berenice Francisco Discharge: Date of : 35 Report #: [id number] membranes are moist. NECK: Shows no jugular venous distention. CHEST: Reveals slight expiratory wheezes. CARDIOVASCULAR: Reveals a regular rhythm without gallop or murmur. ABDOMEN: Reveals normal bowel sounds. The abdomen is soft, nontender. EXTREMITIES: Shows no edema. SKIN: Dry. IMPRESSION AND RECOMMENDATIONS: 1. Multifocal atrial tachycardia, presently resolved. No specific treatment at this time. Treating underlying pulmonary issues would like to keep this from recurring. If she would require rate control for her multifocal atrial tachycardia, would consider diltiazem. 2. Chronic obstructive pulmonary disease exacerbation per hospitalist. We will follow as needed. <ELECTRONICALLY SIGNED> By: Gasper Lala MD, FACC 05/28/19 1152 1056 [id number] Diegohugh Lala MD, LYNNEC /nt
[2019-05-28 12:38] VITALS: BP 106/71
[2019-05-28 15:49] VITALS: BP 132/81
[2019-05-28 20:00] VITALS: BP 142/81; BP 185/89
[2019-05-29] VITALS: BP 150/74
[2019-05-29 04:00] VITALS: BP 144/84
[2019-05-29 13:20] VITALS: BP 139/55
[2019-05-29 13:59] LABS: CALCIUM 9.1 mg/dL (8.5-10.1); CREATININE 1.1 mg/dL (0.6-1.3); POTASSIUM 3.6 mmol/L (3.5-5.1)
[2019-05-29 16:30] VITALS: BP 181/98
--- NOTE | 2019-05-29 16:42 | EKG ---
[place] [address] ELECTROCARDIOGRAM REPORT Name: BRUNO GASCA Room: [address] ADM IN [facility]#: [id number] Admission: 05/28/19 Attend Phys: Berenice Francisco Discharge: Date of : 35 Report #: [id number] THIS REPORT FOR: //name// [facility] ED Test Date: 2019-05-27 Test Time: 23:25:39 Pat Name: BRUNO GASCA Department: Room: [facility] Gender: F Program Director/Morning Show Host: : 1935 Requested By: Avani Hinton Order Number: [id number] MD: Gasper Lala Measurements Intervals [place] Rate: 147 P: ID: QRS: -44 QRSD: 136 T: 112 QT: 337 QTc: 528 Interpretive Statements Multifocal atrial tachycardia Left anterior fascicular block Artifact in lead(s) II,III,aVR,aVL,aVF,V1,V2,V3,V4,V5,V6 Compared to ECG 09/21/2018 15:33:17 Left anterior fascicular block now present multifocal atrial tachycardia now present Electronically Signed On 05-29-2019 16:41:41 [employer] by Gasper Lala [email or web address] <ELECTRONICALLY SIGNED> By: Gasper Lala MD, FACC 05/29/19 1641 232 Gasper Lala MD, [facility] /EPI
--- NOTE | 2019-05-29 16:44 | EKG ---
[place] [address] ELECTROCARDIOGRAM REPORT Name: BRUNO GASCA Room: [address] IN [facility]#: [id number] Admission: 05/28/19 Attend Phys: Berenice Francisco Discharge: Date of : 35 Report #: [id number] THIS REPORT FOR: //name// [facility] ED Test Date: 2019-05-28 Test Time: 04:26:34 Pat Name: BRUNO GASCA Department: Room: [facility] Gender: F Batch Blender: : 1935 Requested By: Avani Hinton Order Number: [id number] MD: Gasper Lala Measurements Intervals [place] Rate: 88 P: 12 PA: 164 QRS: -55 QRSD: 123 T: 92 QT: 368 QTc: 446 Interpretive Statements Multifocal atrial tachycardia Premature ventricular contractions Left anterior fascicular block Compared to ECG 09/21/2018 15:33:17 PVCs now present heart rate has slowed Electronically Signed On 05-29-2019 16:43:28 ANTHROPOMETRIST by Gasper Lala [email or web address] <ELECTRONICALLY SIGNED> By: Gasper Lala MD, FACC 05/29/19 1643 0426 0426 Gasper Lala MD, FAC /EPI
[2019-05-29 20:00] VITALS: BP 144/69
[2019-05-30] VITALS: BP 115/65
[2019-05-30 04:00] VITALS: BP 125/59
[2019-05-30 07:30] VITALS: BP 162/91
[2019-05-30 09:58] LABS: CALCIUM 9.3 mg/dL (8.5-10.1); CREATININE 1.3 mg/dL (0.6-1.3); POTASSIUM 3.6 mmol/L (3.5-5.1)
[2019-05-30 12:00] VITALS: BP 144/84
[2019-05-30 20:30] VITALS: BP 159/92
== END 2019-05-30 21:52 | disposition hospice, home (50) | DRG 177 ==
LOC: M.ERS 22:57 → M.2W 05-28 01:33 → M.TBA-ER 05-28 01:33 → M.2W 05-28 05:41
PROVIDERS: Emergency Medicine; Registered Nurse; ADMIT Internal Medicine
PROC: 5A09357 Assistance with Respiratory Ventilation, Less than 24 Consecutive Hours, Continuous Positive Airway Pressure (ICD-10-PCS; principal; 2019-05-28)
PROC: 5A09357 Assistance with Respiratory Ventilation, Less than 24 Consecutive Hours, Continuous Positive Airway Pressure (ICD-10-PCS; 2019-05-29)
PROC: 5A09357 Assistance with Respiratory Ventilation, Less than 24 Consecutive Hours, Continuous Positive Airway Pressure (ICD-10-PCS; 2019-05-30)
DX: J15.6 Pneumonia due to other Gram-negative bacteria (principal); I50.33 Acute on chronic diastolic (congestive) heart failure; J96.21 Acute and chronic respiratory failure with hypoxia; J44.1 Chronic obstructive pulmonary disease with (acute) exacerbation; J44.0 Chronic obstructive pulmonary disease with (acute) lower respiratory infection; I47.1 Supraventricular tachycardia; S09.90XA Unspecified injury of head, initial encounter; X58.XXXA Exposure to other specified factors, initial encounter; I48.91 Unspecified atrial fibrillation; M19.90 Unspecified osteoarthritis, unspecified site; Z66 Do not resuscitate; Z90.710 Acquired absence of both cervix and uterus; Z87.440 Personal history of urinary (tract) infections; Z79.899 Other long term (current) drug therapy; Z79.82 Long term (current) use of aspirin; Z91.041 Radiographic dye allergy status; Z87.891 Personal history of nicotine dependence; Z87.01 Personal history of pneumonia (recurrent); Z98.41 Cataract extraction status, right eye; Z99.81 Dependence on supplemental oxygen; Z82.49 Family history of ischemic heart disease and other diseases of the circulatory system; Z83.6 Family history of other diseases of the respiratory system; Y93.89 Activity, other specified; Y92.89 Other specified places as the place of occurrence of the external cause; Y99.8 Other external cause status; Z79.51 Long term (current) use of inhaled steroids